=== PATIENT | female | born 1975 | race Caucasian/White ===

== ENCOUNTER 2018-08-15 20:21 | Emergency (ER) | END 2018-08-16 04:10 | disposition home or self-care (01) ==

== ENCOUNTER 2018-12-06 23:43 | Emergency (ER) | payer OTHER ==
[~2018-12-06] VITALS: Ht 154.9 cm; Wt 64.2 kg
[~2018-12-06 23:43] MED LIST: ONDA4TAB14 PO; TRAM50TA2 PO
[2018-12-06 23:45] VITALS: Ht 154.9 cm; Wt 64.2 kg
[2018-12-07] MEDS ORDERED: SOD CHLORIDE 0.9% 1,000 ML IV STA (02:17)
[2018-12-07] MEDS ORDERED: morphine 4 MG/ML VIAL IV STA (02:17)
[2018-12-07] MEDS ORDERED: ONDANSETRON 4 MG INJ IV STA (02:17)
--- NOTE | 2018-12-07 05:36 | ERD ---
ER Documentation Chief Complaint Chief Complaint Right flank pain today, +nausea. denies blood in urine hx of kidney stones HPI This is a 43-year-old female comes in with some right flank pain mild nausea today. Denies any blood in urine. Pain is mild to moderate in intensity with no exacerbating alleviating factors. ROS All systems reviewed and are negative except as per history of present illness. Medications Home Meds Active Scripts Ondansetron (Ondansetron Odt) 4 Mg Tab.rapdis, 4 MG PO Q6H PRN for NAUSEA AND/OR VOMITING, #10 TAB Prov:GIRISH LUTHER 08/16/18 Tramadol HCl (Tramadol HCl) 50 Mg Tablet, 50 MG PO Q4 PRN for PAIN, #20 TAB Prov:GIRISH LUTHER. 08/16/18 Allergies Allergies: Coded Allergies: No Known Drug Allergies (Verified Allergy, Unknown, 08/15/18) PMhx/Soc History of Surgery: Yes (hysterectomy ) Anesthesia Reaction: No Hx Neurological Disorder: No Hx Respiratory Disorders: No Hx Cardiac Disorders: No Hx Psychiatric Problems: No Hx Miscellaneous Medical Probl: Yes (KIDNEY STONE ) Hx Alcohol Use: No Hx Substance Use: No Hx Tobacco Use: No Smoking Status: Never smoker Physical Exam Vitals Vital Signs Date Temp Pulse Resp B/P (MAP) Pulse Ox O2 O2 Flow FiO2 Time Delivery Rate 12/07/18 74 16 153/97 100 Room Air 02:51 (115) 12/06/18 97.8 83 20 168/92 97 23:45 (117) Physical Exam Const: No acute distress Head: Atraumatic Eyes: Normal Conjunctiva ENT: Normal External Ears, Nose and Mouth. Neck: Full range of motion. No meningismus. Resp: Clear to auscultation bilaterally Cardio: Regular rate and rhythm, no murmurs Abd: Soft, non tender, non distended. Normal bowel sounds Skin: No petechiae or rashes Back: No midline or flank tenderness Ext: No cyanosis, or edema Neur: Awake and alert Psych: Normal Mood and Affect Result Diagram: 12/07/18 0242 12/07/18 0242 Results 24 hrs Laboratory Tests Test 12/07/18 02:42 12/07/18 03:55 12/07/18 03:59 White Blood Count 11.6 10^3/ul Red Blood Count 4.41 10^6/ul Hemoglobin 13.1 g/dl Hematocrit 40.2 % Mean Corpuscular Volume 91.2 fl Mean Corpuscular Hemoglobin 29.7 pg Mean Corpuscular 32.6 g/dl Hemoglobin Concent Red Cell Distribution Width 13.1 % Platelet Count 376 10^3/UL Mean Platelet Volume 10.0 fl Immature Granulocytes % 0.700 % Neutrophils % 73.2 % Lymphocytes % 18.7 % Monocytes % 6.2 % Eosinophils % 0.8 % Basophils % 0.4 % Nucleated Red Blood Cells % 0.0 /100WBC Immature Granulocytes # 0.080 10^3/ul Neutrophils # 8.5 10^3/ul Lymphocytes # 2.2 10^3/ul Monocytes # 0.7 10^3/ul Eosinophils # 0.1 10^3/ul Basophils # 0.1 10^3/ul Nucleated Red Blood Cells # 0.0 10^3/ul Sodium Level 142 mmol/L Potassium Level 3.8 mmol/L Chloride Level 106 mmol/L Carbon Dioxide Level 24 mmol/L Anion Gap 12 Blood Urea Nitrogen 8 mg/dl Creatinine 0.60 mg/dl Est Glomerular Filtrat > 60 mL/min Rate mL/min Glucose Level 151 mg/dl Calcium Level 9.7 mg/dl Total Bilirubin 0.2 mg/dl Direct Bilirubin 0.00 mg/dl Indirect Bilirubin 0.2 mg/dl Aspartate Amino Transf (AST/SGOT) 32 IU/L Alanine 29 IU/L Aminotransferase (ALT/SGPT) Alkaline Phosphatase 152 IU/L Total Protein 8.3 g/dl Albumin 4.4 g/dl Globulin 3.90 g/dl Albumin/Globulin Ratio 1.12 Lipase 83 U/L Urine Color STRAW Urine Clarity SLIGHTLY CLOUDY Urine pH 6.0 Urine Specific [place] 1.004 Urine Ketones NEGATIVE mg/dL Urine Nitrite NEGATIVE mg/dL Urine Bilirubin NEGATIVE mg/dL Urine Urobilinogen NEGATIVE mg/dL Urine Leukocyte Esterase NEGATIVE Brent/ul Urine Microscopic RBC 2 /HPF Urine Microscopic WBC 3 /HPF Urine Squamous Epithelial Cells MODERATE /HPF Urine Bacteria FEW /HPF Urine Hemoglobin 2+ mg/dL Urine Glucose NEGATIVE mg/dL Urine Total Protein NEGATIVE mg/dl POC Beta HCG, Qualitative NEGATIVE Current Medications Medications Dose Sig/Claudia Start Time Status Last (Trade) Ordered Route PRN Stop Time Admin Dose Reason Admin Sodium 1,000 ml @ Q1H STAT 12/07/18 DC 12/07/18 Chloride 1,000 mls/hr IV 02:17 12/07/18 02:44 03:16 Morphine 4 mg ONCE STAT 12/07/18 DC 12/07/18 Sulfate IV 02:17 12/07/18 02:44 (morphine) 02:18 Ondansetron 4 mg ONCE STAT 12/07/18 DC 12/07/18 HCl (Zofran IV 02:17 12/07/18 02:44 Inj) 02:18 Procedures/MDM Medical decision making: Patient with evidence of acute diverticulitis. Stable for trial of outpatient management. Patient's gastrointestinal symptoms have stabilized while in the department. No evidence of severe dehydration, sepsis, or surgical abdomen. Extensive discussion with family and patient that occult disease cannot be ruled out. 8 hour recheck for repeat abdominal exam is planned. Departure Diagnosis: Primary Impression: Diverticulitis Condition: Stable GIRISH LUTHER Dec 07, 2018 05:35
[2018-12-07] MEDS ORDERED: CIPR500T4 PO (05:37)
[2018-12-07] MEDS ORDERED: METR500T PO (05:37)
[2018-12-07] MEDS ORDERED: TRAM50TA2 PO (05:37)
[2018-12-07] MEDS ORDERED: ONDA4TAB14 PO (05:37)
[2018-12-07 06:10] VITALS: BP 127/84; PULSE 69; RESP 16
== END 2018-12-07 06:10 | disposition home or self-care (01) ==
LOC: E/R 23:43
DX: K57.32 Diverticulitis of large intestine without perforation or abscess without bleeding (principal)
CPT/HCPCS: 36415; 74176; 80053; 81001; 81025; 83690; 85025; 96374; 96375; J2270; J2405; J7030; Z7502